=== PATIENT | male | born 1990 | race Caucasian/White ===

== ENCOUNTER → 2017-12-18 | Emergency (ER) | payer OTHER ==
[~2017-12-18] VITALS: Ht 170.2 cm; Wt 72.6 kg
[~2017-12-18] MED LIST: AMOX1TAB5 PO; ULTRACET PO
== END | disposition home or self-care (01) ==
LOC: ER 09:42
DX: S02.81XA Fracture of other specified skull and facial bones, right side, initial encounter for closed fracture (principal); S51.821A Laceration with foreign body of right forearm, initial encounter; W18.39XA Other fall on same level, initial encounter; Y93.89 Activity, other specified; Y92.89 Other specified places as the place of occurrence of the external cause; Y99.8 Other external cause status